=== PATIENT | male | born 1960 | race Asian ===

== ENCOUNTER 2023-03-29 08:25 | Emergency (ER) | payer MEDICAID ==
[~2023-03-29] VITALS: Ht 175.3 cm; Wt 56.8 kg
[2023-03-29 08:28] VITALS: TEMP 99
[2023-03-29] MEDS ORDERED: AMOX TR/POT CLAV 875 MG/125 MG TABLET PO ONE (09:00)
[2023-03-29] MEDS ORDERED: AMOX1TAB16 PO (09:05)
[2023-03-29 09:08] VITALS: BP 154/100; PULSE 96; RESP 16
[2023-03-30] MEDS ORDERED: BACI28.410 TP (19:08)
[2023-03-30] MEDS ORDERED: DOXY-354 PO (19:08)
== END 2023-03-29 09:27 | disposition home or self-care (01) ==
LOC: EMS 08:27
DX: K13.0 Diseases of lips (principal)
CPT/HCPCS: 99283

== ENCOUNTER 2023-03-30 16:41 | Emergency (ER) | payer MEDICAID ==
[~2023-03-30] VITALS: Ht 175.3 cm; Wt 54.5 kg
[~2023-03-30 16:41] MED LIST: AMOX1TAB16 PO
[2023-03-30 16:53] VITALS: BP 153/83; PULSE 107; RESP 18; TEMP 99.8
[2023-03-30] MEDS ORDERED: MUPIROCIN CALCIUM 2% 22 GM OINTMENT TP ONE (18:30)
[2023-03-30] MEDS ORDERED: BACI28.410 TP (19:08)
[2023-03-30] MEDS ORDERED: DOXY-354 PO (19:08)
== END 2023-03-30 19:44 | disposition home or self-care (01) ==
LOC: EMS 16:42
DX: K13.0 Diseases of lips (principal)
CPT/HCPCS: 11042; 99282; Z7502; Z7610